=== PATIENT | female | born 1970 | race Caucasian/White ===

== ENCOUNTER 2018-02-26 12:50 | Outpatient (CLI) | payer BC ==
--- NOTE | 2018-02-26 14:55 | ULT ---
RIGHT LOWER EXTREMITY VENOUS DUPLEX ULTRASOUND INCLUDING COLOR AND SPECTRAL DOPPLER IMAGING: HISTORY: A 47-year-old female with a history of right lower extremity edema and pain for 5 days, mostly in the upper calf. FINDINGS: Exam performed from groin to ankle including visualized greater saphenous, common femoral, superficia l femoral, profunda femoral, popliteal, trifurcation, and posterior tibial vein regions. There is evidence for intraluminal thrombus with decreased compressibility and near occlusion within the popliteal vein, evidence for deep venous thrombosis. The greater saphenous, common femoral, supe rficial femoral, and profunda femoral veins were patent. Posterior tibial vein was poorly defined. IMPRESSION: Evidence for deep venous thrombosis involving the popliteal vein. Findings were discussed with Dr. Carlos Chan by phone at 1:50 p.m. CODE CR The patient was sent back to Dr. Chan's office. POS: [facility]
== END 2018-02-26 12:51 | disposition home or self-care (01) ==
LOC: ULT 12:50
PROVIDERS: ATTEND Family Medicine
DX: M79.604 Pain in right leg (principal); I82.431 Acute embolism and thrombosis of right popliteal vein

== ENCOUNTER 2020-01-18 14:54 | Outpatient (CLI) | payer BC ==
--- NOTE | 2020-01-18 15:37 | RAD ---
THREE VIEWS RIGHT KNEE: 01/18/20 COMPARISON: None. HISTORY: Torn meniscus for the last year with right knee pain. FINDINGS: Three views of the right knee shows no evidence of acute fracture or dislocation. Mild joint space na rrowing is seen in the patellofemoral and medial femorotibial compartments. No knee effusion is seen. IMPRESSION: Mild right knee osteoarthritis. POS: [facility]
== END 2020-01-18 14:55 | disposition home or self-care (01) ==
LOC: SCSRAD 14:54
PROVIDERS: ATTEND Family Medicine
DX: M25.561 Pain in right knee (principal); M79.661 Pain in right lower leg; M17.11 Unilateral primary osteoarthritis, right knee
CPT/HCPCS: 36415; 85379